=== PATIENT | female | born 1960 | race Caucasian/White ===

== ENCOUNTER 2018-08-11 09:48 | Emergency (ER) | payer BC, MEDICARE ==
[~2018-08-11] VITALS: Ht 170.2 cm; Wt 104.3 kg
[~2018-08-11 09:48] MED LIST: ASPI325; HYDACE5 PO; MULVITMINF PO; PROM25 PO
[2018-08-11] MEDS ORDERED: Norco 5-325 Ta1 EACH PO (11:02)
[2018-08-11] MEDS ORDERED: CYCL10 PO (11:02)
[2018-08-11] MEDS ORDERED: Naprosyn500 MG PO (11:02)
== END 2018-08-11 11:13 | disposition home or self-care (01) ==
LOC: ER 09:48
DX: M54.5 Low back pain (principal); Z88.5 Allergy status to narcotic agent; Z87.891 Personal history of nicotine dependence
CPT/HCPCS: 96372; 99282-25; J1885

== ENCOUNTER 2018-10-28 15:27 | Emergency (ER) | payer BC, MEDICARE ==
[~2018-10-28] VITALS: Ht 170.2 cm; Wt 90.7 kg
[~2018-10-28 15:27] MED LIST changes: +CYCL10 PO; +Naprosyn500 MG PO; +Norco 5-325 Ta1 EACH PO
[2018-10-28 16:19] LABS: Influenza A Negative (NEGATIVE); Influenza B Negative (NEGATIVE)
[2018-10-28 17:26] LABS: BASOPHILS ABSOLUTE AUTO 0.05 K/mm3 (0.00-0.23); BASOPHILS PERCENT AUTO 1 % (0-2); EOSINOPHILS ABSOLUTE AUTO 0.03 K/mm3 (0.00-0.68); EOSINOPHILS PERCENT AUTO 0 % (0-6); Hemoglobin 15.5 g/dL (11.5-16.0); IMMATURE GRAN ABSOLUTE AUTO 0.03 K/mm3 (0.00-0.10); IMMATURE GRAN PERCENT AUTO 0 % (0-1); LYMPHOCYTES ABSOLUTE AUTO 2.13 K/mm3 (0.84-5.20); LYMPHOCYTES PERCENT AUTO 22 % (21-46); MONOCYTES ABSOLUTE AUTO 0.42 K/mm3 (0.16-1.47); MONOCYTES PERCENT AUTO 4 % (4-13); Mean Corpuscular HGB 28.2 pg (26.0-34.0); Mean Corpuscular HGB Conc 32.3 g/dL (31.5-36.5); Mean Corpuscular Volume 87 fL (80-100); Mean Platelet Volume 9.5 fL (9.1-12.4); NEUTROPHILS ABSOLUTE AUTO 7.19 K/mm3 (1.96-9.15); NEUTROPHILS PERCENT AUTO 73 % (41-73); Platelet Count 335 K/mm3 (150-400); RDW Coefficient Variation 12.1 % (11.7-14.2); RDW Standard Deviation 38.8 fL (35.1-46.3); White Blood Cell Count 9.85 K/mm3 (4.00-11.30)
[2018-10-28 17:42] LABS: Alanine Aminotransfer (ALT/SGP 61 U/L (12-78); Albumin, Blood 3.8 g/dL (3.4-5.0); Albumin/Globulin Ratio 0.9 (0.8-1.8); Alk Phos 50 U/L (50-136); Anion Gap 9 mmol/L (6-16); Aspartate Aminotrans (AST/SGOT 31 U/L (12-37); Bilirubin, Total 0.4 mg/dL (0.1-1.0); Blood Urea Nitrogen 14 mg/dL (8-24); Bun/Creatinine Ratio 22.8 (12.0-20.0); CO2, Blood 22 mmol/L (21-32); Chloride, Blood 106 mmol/L (98-108); Creatinine, Blood 0.61 mg/dL (0.40-1.00); Globulin, Blood 4.1 g/dL (2.2-4.0); Glomerular Filtration Rate >60 (60-); Glucose, Blood 119 mg/dL (70-99); Potassium, Blood 3.9 mmol/L (3.5-5.5); Sodium, Blood 137 mmol/L (136-145); Total Protein, Blood 7.9 g/dL (6.4-8.2)
== END 2018-10-28 19:20 | disposition home or self-care (01) ==
LOC: ER 15:27
PROVIDERS: Physician Assistant
DX: R51 Headache (principal); R03.0 Elevated blood-pressure reading, without diagnosis of hypertension; Z88.5 Allergy status to narcotic agent; Z87.891 Personal history of nicotine dependence
CPT/HCPCS: 36415; 80053; 85025; 87804; 96361; 96374; 96375; 99283-25; J1100; J1200; J1885; J2405; J2765; J7030

== ENCOUNTER 2020-04-05 00:47 | Day surgery (SDC) | payer MEDICARE | END 2020-04-05 22:55 | disposition home or self-care (01) | LOC: WOUND 00:47 | DX: L97.322 Non-pressure chronic ulcer of left ankle with fat layer exposed (principal); L97.812 Non-pressure chronic ulcer of other part of right lower leg with fat layer exposed; I87.2 Venous insufficiency (chronic) (peripheral); I82.819 Embolism and thrombosis of superficial veins of unspecified lower extremity; E78.5 Hyperlipidemia, unspecified; F17.200 Nicotine dependence, unspecified, uncomplicated; Z79.899 Other long term (current) drug therapy; Z88.2 Allergy status to sulfonamides; Z88.5 Allergy status to narcotic agent | CPT/HCPCS: G0463 ==

== ENCOUNTER 2020-04-12 00:11 | Day surgery (SDC) | payer MEDICARE | END 2020-04-12 23:14 | disposition home or self-care (01) | LOC: WOUND 00:11 | DX: L97.322 Non-pressure chronic ulcer of left ankle with fat layer exposed (principal); L97.812 Non-pressure chronic ulcer of other part of right lower leg with fat layer exposed; I87.2 Venous insufficiency (chronic) (peripheral); I82.819 Embolism and thrombosis of superficial veins of unspecified lower extremity; E78.5 Hyperlipidemia, unspecified ==

== ENCOUNTER 2020-04-15 00:21 | Day surgery (SDC) | payer MEDICARE | END 2020-04-15 22:56 | disposition home or self-care (01) | LOC: WOUND 00:21 | DX: L97.322 Non-pressure chronic ulcer of left ankle with fat layer exposed (principal); L97.812 Non-pressure chronic ulcer of other part of right lower leg with fat layer exposed; I87.2 Venous insufficiency (chronic) (peripheral); I82.819 Embolism and thrombosis of superficial veins of unspecified lower extremity ==

== ENCOUNTER 2020-04-19 01:47 | Day surgery (SDC) | payer MEDICARE | END 2020-04-19 22:40 | disposition home or self-care (01) | LOC: WOUND 01:47 | DX: L97.322 Non-pressure chronic ulcer of left ankle with fat layer exposed (principal); L97.812 Non-pressure chronic ulcer of other part of right lower leg with fat layer exposed; I87.2 Venous insufficiency (chronic) (peripheral); I82.819 Embolism and thrombosis of superficial veins of unspecified lower extremity; E78.5 Hyperlipidemia, unspecified; Z79.899 Other long term (current) drug therapy ==

== ENCOUNTER 2020-04-27 00:28 | Day surgery (SDC) | payer MEDICARE | END 2020-04-27 22:42 | disposition home or self-care (01) | LOC: WOUND 00:28 | DX: L97.322 Non-pressure chronic ulcer of left ankle with fat layer exposed (principal); L97.812 Non-pressure chronic ulcer of other part of right lower leg with fat layer exposed; I87.2 Venous insufficiency (chronic) (peripheral); I82.819 Embolism and thrombosis of superficial veins of unspecified lower extremity ==

== ENCOUNTER 2020-05-10 00:37 | Day surgery (SDC) | payer MEDICARE | END 2020-05-10 22:49 | disposition home or self-care (01) | LOC: WOUND 00:37 | DX: L97.322 Non-pressure chronic ulcer of left ankle with fat layer exposed (principal); L97.812 Non-pressure chronic ulcer of other part of right lower leg with fat layer exposed; I87.2 Venous insufficiency (chronic) (peripheral); I82.819 Embolism and thrombosis of superficial veins of unspecified lower extremity; Z79.899 Other long term (current) drug therapy ==

== ENCOUNTER 2020-05-17 00:09 | Day surgery (SDC) | payer MEDICARE | END 2020-05-17 22:48 | disposition home or self-care (01) | LOC: WOUND 00:09 | DX: L97.322 Non-pressure chronic ulcer of left ankle with fat layer exposed (principal); L97.812 Non-pressure chronic ulcer of other part of right lower leg with fat layer exposed; I87.2 Venous insufficiency (chronic) (peripheral); I82.819 Embolism and thrombosis of superficial veins of unspecified lower extremity ==

== ENCOUNTER 2020-05-24 05:30 | Day surgery (SDC) | payer MEDICARE | END 2020-05-24 23:05 | disposition home or self-care (01) | LOC: WOUND 05:30 | DX: L97.322 Non-pressure chronic ulcer of left ankle with fat layer exposed (principal); L97.812 Non-pressure chronic ulcer of other part of right lower leg with fat layer exposed; I87.2 Venous insufficiency (chronic) (peripheral); I82.819 Embolism and thrombosis of superficial veins of unspecified lower extremity | CPT/HCPCS: G0463 ==

== ENCOUNTER 2020-05-31 01:10 | Day surgery (SDC) | payer MEDICARE | END 2020-05-31 23:27 | disposition home or self-care (01) | LOC: WOUND 01:10 | DX: S81.801A Unspecified open wound, right lower leg, initial encounter (principal); Z88.5 Allergy status to narcotic agent; X58.XXXA Exposure to other specified factors, initial encounter ==

== ENCOUNTER 2020-06-08 00:37 | Day surgery (SDC) | payer MEDICARE | END 2020-06-08 22:49 | disposition home or self-care (01) | LOC: WOUND 00:37 | DX: L97.812 Non-pressure chronic ulcer of other part of right lower leg with fat layer exposed (principal); I87.2 Venous insufficiency (chronic) (peripheral); E78.5 Hyperlipidemia, unspecified; Z79.899 Other long term (current) drug therapy ==

== ENCOUNTER 2020-06-14 00:25 | Day surgery (SDC) | payer MEDICARE | END 2020-06-14 12:00 | disposition home or self-care (01) | LOC: WOUND 00:25 | DX: I96 Gangrene, not elsewhere classified (principal); L97.812 Non-pressure chronic ulcer of other part of right lower leg with fat layer exposed; I87.2 Venous insufficiency (chronic) (peripheral); E78.5 Hyperlipidemia, unspecified; J44.9 Chronic obstructive pulmonary disease, unspecified; K74.60 Unspecified cirrhosis of liver; F41.8 Other specified anxiety disorders; Z88.5 Allergy status to narcotic agent ==

== ENCOUNTER 2020-06-21 02:04 | Day surgery (SDC) | payer MEDICARE | END 2020-06-21 23:12 | disposition home or self-care (01) | LOC: WOUND 02:04 | DX: I96 Gangrene, not elsewhere classified (principal); L97.812 Non-pressure chronic ulcer of other part of right lower leg with fat layer exposed; I87.2 Venous insufficiency (chronic) (peripheral); E78.5 Hyperlipidemia, unspecified; B19.20 Unspecified viral hepatitis C without hepatic coma; J44.9 Chronic obstructive pulmonary disease, unspecified; K74.60 Unspecified cirrhosis of liver; F41.8 Other specified anxiety disorders; Z88.5 Allergy status to narcotic agent ==

== ENCOUNTER 2020-06-28 00:52 | Day surgery (SDC) | payer MEDICARE | END 2020-06-28 23:02 | disposition home or self-care (01) | LOC: WOUND 00:52 | DX: L97.812 Non-pressure chronic ulcer of other part of right lower leg with fat layer exposed (principal); I87.2 Venous insufficiency (chronic) (peripheral); E78.5 Hyperlipidemia, unspecified; Z79.899 Other long term (current) drug therapy ==

== ENCOUNTER 2020-07-05 00:10 | Day surgery (SDC) | payer MEDICARE | END 2020-07-05 23:06 | disposition home or self-care (01) | LOC: WOUND 00:10 | DX: L97.812 Non-pressure chronic ulcer of other part of right lower leg with fat layer exposed (principal); I87.2 Venous insufficiency (chronic) (peripheral); J44.9 Chronic obstructive pulmonary disease, unspecified; K74.60 Unspecified cirrhosis of liver; B96.20 Unspecified Escherichia coli [E. coli] as the cause of diseases classified elsewhere; F41.8 Other specified anxiety disorders; Z88.5 Allergy status to narcotic agent ==

== ENCOUNTER 2020-07-12 00:51 | Day surgery (SDC) | payer MEDICARE | END 2020-07-12 23:39 | disposition home or self-care (01) | LOC: WOUND 00:51 | DX: L97.812 Non-pressure chronic ulcer of other part of right lower leg with fat layer exposed (principal); I87.2 Venous insufficiency (chronic) (peripheral); E78.5 Hyperlipidemia, unspecified; J44.9 Chronic obstructive pulmonary disease, unspecified; K74.60 Unspecified cirrhosis of liver; F41.8 Other specified anxiety disorders; Z88.5 Allergy status to narcotic agent ==

== ENCOUNTER 2020-07-19 00:19 | Day surgery (SDC) | payer MEDICARE | END 2020-07-19 23:10 | disposition home or self-care (01) | LOC: WOUND 00:19 | DX: L97.812 Non-pressure chronic ulcer of other part of right lower leg with fat layer exposed (principal); I87.2 Venous insufficiency (chronic) (peripheral); J44.9 Chronic obstructive pulmonary disease, unspecified; K74.60 Unspecified cirrhosis of liver; F41.8 Other specified anxiety disorders; G43.909 Migraine, unspecified, not intractable, without status migrainosus; B18.2 Chronic viral hepatitis C; I10 Essential (primary) hypertension; F32.9 Major depressive disorder, single episode, unspecified; E78.5 Hyperlipidemia, unspecified; E66.9 Obesity, unspecified; Z68.33 Body mass index [BMI] 33.0-33.9, adult; Z79.899 Other long term (current) drug therapy; Z79.82 Long term (current) use of aspirin; Z88.5 Allergy status to narcotic agent ==

== ENCOUNTER 2020-07-26 00:25 | Day surgery (SDC) | payer MEDICARE | END 2020-07-26 22:40 | disposition home or self-care (01) | LOC: WOUND 00:25 | DX: L97.811 Non-pressure chronic ulcer of other part of right lower leg limited to breakdown of skin (principal); I87.2 Venous insufficiency (chronic) (peripheral); I73.9 Peripheral vascular disease, unspecified; J44.9 Chronic obstructive pulmonary disease, unspecified; K74.60 Unspecified cirrhosis of liver; E78.5 Hyperlipidemia, unspecified; B19.20 Unspecified viral hepatitis C without hepatic coma; F41.8 Other specified anxiety disorders; Z88.5 Allergy status to narcotic agent | CPT/HCPCS: G0463 ==

== ENCOUNTER 2020-08-03 00:21 | Day surgery (SDC) | payer MEDICARE | END 2020-08-03 12:57 | disposition home or self-care (01) | LOC: WOUND 00:21 | DX: L97.812 Non-pressure chronic ulcer of other part of right lower leg with fat layer exposed (principal); I87.2 Venous insufficiency (chronic) (peripheral); B19.20 Unspecified viral hepatitis C without hepatic coma; E78.5 Hyperlipidemia, unspecified; J44.9 Chronic obstructive pulmonary disease, unspecified; F41.8 Other specified anxiety disorders; K74.60 Unspecified cirrhosis of liver; Z88.5 Allergy status to narcotic agent | CPT/HCPCS: G0463 ==

== ENCOUNTER → 2020-08-30 | Outpatient (CLI) | payer MEDICARE, OTHER ==
[~2020-08-30] MED LIST changes: +ELIQUIS5 MG PO; +XARELTO15 MG PO
[2020-09-02 10:10] LABS: HPV 16 Negative (Negative); HPV 18 Negative (Negative); HPV OTHER HR TYPES Negative (Negative)
== END | disposition home or self-care (01) ==
LOC: LAB SHORT 15:02 → LAB 15:02
PROVIDERS: Obstetrics & Gynecology
DX: Z12.4 Encounter for screening for malignant neoplasm of cervix (principal)
CPT/HCPCS: 87624; G0123

== ENCOUNTER 2020-09-08 20:08 | Emergency (ER) | payer MEDICARE, SELFPAY ==
[~2020-09-08] VITALS: Ht 170.2 cm; Wt 95.2 kg
[~2020-09-08 20:08] MED LIST changes: -ELIQUIS5 MG PO; -XARELTO15 MG PO
[2020-09-08] MEDS ORDERED: ASPI325 (20:37)
[2020-09-08] MEDS ORDERED: XARELTO15 MG PO (21:52)
[2020-09-09] MEDS ORDERED: ELIQUIS5 MG PO (14:18)
== END 2020-09-08 22:00 | disposition home or self-care (01) ==
LOC: ER 20:08
DX: I82.412 Acute embolism and thrombosis of left femoral vein (principal); I82.432 Acute embolism and thrombosis of left popliteal vein; I82.462 Acute embolism and thrombosis of left calf muscular vein; Z88.5 Allergy status to narcotic agent; Z79.899 Other long term (current) drug therapy; Z87.891 Personal history of nicotine dependence
CPT/HCPCS: 93971; 99283-25; A9270

== ENCOUNTER 2021-03-15 08:21 | Day surgery (SDC) | payer MEDICARE ==
[~2021-03-15] VITALS: Ht 170.2 cm; Wt 95.5 kg
[~2021-03-15 08:21] MED LIST changes: +ELIQUIS5 MG PO; +XARELTO15 MG PO
== END 2021-03-15 10:50 | disposition home or self-care (01) ==
LOC: ORSCSDS 08:21
PROVIDERS: Internal Medicine Gastroenterology
PROC: 0DBK8ZX Excision of Ascending Colon, Via Natural or Artificial Opening Endoscopic, Diagnostic (ICD-10-PCS; principal; 2021-03-15 09:45)
DX: Z12.11 Encounter for screening for malignant neoplasm of colon (principal); Z86.010 Personal history of colon polyps; Z80.0 Family history of malignant neoplasm of digestive organs; D12.2 Benign neoplasm of ascending colon; K64.8 Other hemorrhoids; K57.30 Diverticulosis of large intestine without perforation or abscess without bleeding; B19.20 Unspecified viral hepatitis C without hepatic coma; E78.5 Hyperlipidemia, unspecified; J45.909 Unspecified asthma, uncomplicated; F17.210 Nicotine dependence, cigarettes, uncomplicated; Z79.01 Long term (current) use of anticoagulants; Z79.82 Long term (current) use of aspirin; Z79.899 Other long term (current) drug therapy
CPT/HCPCS: 88305; J2704; J7120

== ENCOUNTER → 2023-06-14 | Outpatient (CLI) | payer MEDICARE, OTHER ==
[2023-06-14 19:01] LABS: Microalbumin, Urine Quant. 10.4 mg/L (0.000-20.000)
== END ==
LOC: LAB SHORT 15:53 → LAB 15:53
PROVIDERS: Internal Medicine
DX: R63.4 Abnormal weight loss (principal)
CPT/HCPCS: 81050; 82043

== ENCOUNTER → 2023-06-14 | Outpatient (CLI) | payer MEDICARE, OTHER ==
[2023-06-15 12:48] LABS: Stool Occult Bld Immuno 1 Negative (NEGATIVE)
== END ==
LOC: LAB 06-12 08:00 → LAB SHORT 06-12 08:00 → LAB 08:00
PROVIDERS: Internal Medicine
DX: R63.4 Abnormal weight loss (principal)
CPT/HCPCS: 82274

== ENCOUNTER 2025-07-05 00:43 | Day surgery (SDC) | payer MEDICARE, OTHER ==
[2025-07-05] MEDS ORDERED: Lidocaine HCl 4% Cream 5 GM ONE (08:15)
== END 2025-07-05 22:00 | disposition home or self-care (01) ==
LOC: WOUND 00:43
DX: S91.302A Unspecified open wound, left foot, initial encounter (principal); E78.5 Hyperlipidemia, unspecified; I73.9 Peripheral vascular disease, unspecified; Z88.2 Allergy status to sulfonamides; Z88.5 Allergy status to narcotic agent; Z88.8 Allergy status to other drugs, medicaments and biological substances
CPT/HCPCS: A9270; G0463

== ENCOUNTER 2025-07-12 00:29 | Day surgery (SDC) | payer MEDICARE, OTHER ==
[2025-07-12] MEDS ORDERED: Lidocaine HCl 4% Cream 5 GM ONE (08:40)
== END 2025-07-12 23:00 | disposition home or self-care (01) ==
LOC: WOUND 00:29
DX: S91.302A Unspecified open wound, left foot, initial encounter (principal); X58.XXXA Exposure to other specified factors, initial encounter; I87.2 Venous insufficiency (chronic) (peripheral); I73.9 Peripheral vascular disease, unspecified; E78.5 Hyperlipidemia, unspecified
CPT/HCPCS: A9270

== ENCOUNTER 2025-07-19 07:18 | Day surgery (SDC) | payer MEDICARE, OTHER ==
[2025-07-19] MEDS ORDERED: Lidocaine HCl 4% Cream 5 GM ONE (11:05)
== END 2025-07-19 23:36 | disposition home or self-care (01) ==
LOC: WOUND 07:18
DX: S91.302A Unspecified open wound, left foot, initial encounter (principal); I73.9 Peripheral vascular disease, unspecified
CPT/HCPCS: A9270

== ENCOUNTER 2025-07-26 02:37 | Day surgery (SDC) | payer MEDICARE, OTHER ==
[2025-07-26] MEDS ORDERED: Lidocaine HCl 4% Cream 5 GM ONE (10:14)
== END 2025-07-26 23:00 | disposition home or self-care (01) ==
LOC: WOUND 02:37
DX: S91.302A Unspecified open wound, left foot, initial encounter (principal); X58.XXXA Exposure to other specified factors, initial encounter; I87.2 Venous insufficiency (chronic) (peripheral); I73.9 Peripheral vascular disease, unspecified; E78.5 Hyperlipidemia, unspecified
CPT/HCPCS: A9270

== ENCOUNTER 2025-08-02 00:13 | Day surgery (SDC) | payer MEDICARE, OTHER ==
[2025-08-02] MEDS ORDERED: Lidocaine HCl 4% Cream 5 GM ONE (10:03)
== END 2025-08-02 23:00 | disposition home or self-care (01) ==
LOC: WOUND 00:13
DX: S91.302D Unspecified open wound, left foot, subsequent encounter (principal); X58.XXXD Exposure to other specified factors, subsequent encounter; I73.9 Peripheral vascular disease, unspecified; I87.2 Venous insufficiency (chronic) (peripheral); E78.5 Hyperlipidemia, unspecified
CPT/HCPCS: A9270; G0463

== ENCOUNTER → 2025-08-16 | Day surgery (SDC) | payer MEDICARE, OTHER ==
[~2025-08-16] MED LIST changes: +Lidocaine HCl 4% Cream 5 GM ONE
== END ==
LOC: WOUND 12:14
DX: S91.302D Unspecified open wound, left foot, subsequent encounter (principal); I73.9 Peripheral vascular disease, unspecified; E78.5 Hyperlipidemia, unspecified
CPT/HCPCS: A9270; G0463